=== PATIENT | female | born 1970 | race Caucasian/White ===

== ENCOUNTER → 2023-10-18 08:46 | Outpatient (REF) | payer OTHER, SELFPAY | LOC: HWRAD 08:46 | PROVIDERS: ATTENDING PHYSICIAN Nurse Practitioner Family; FAMILY PHYSICIAN Nurse Practitioner Family | DX: R22.1 Localized swelling, mass and lump, neck (principal) | CPT/HCPCS: 76536 ==

== ENCOUNTER → 2023-11-29 13:11 | Outpatient (REF) | payer OTHER, SELFPAY | LOC: HWWDC 13:11 | PROVIDERS: ATTENDING PHYSICIAN Obstetrics & Gynecology; FAMILY PHYSICIAN Nurse Practitioner Family | DX: Z12.31 Encounter for screening mammogram for malignant neoplasm of breast (principal) | CPT/HCPCS: 77063; 77067 ==

== ENCOUNTER → 2024-02-12 13:44 | Outpatient (REF) | payer OTHER, SELFPAY | LOC: HWRAD 13:44 | PROVIDERS: ATTENDING PHYSICIAN Obstetrics & Gynecology Gynecology; FAMILY PHYSICIAN Nurse Practitioner Family | DX: N95.0 Postmenopausal bleeding (principal) | CPT/HCPCS: 76830; 76856 ==

== ENCOUNTER → 2025-01-07 13:00 | Outpatient (REF) | payer OTHER, SELFPAY | LOC: HWWDC 13:00 | PROVIDERS: ATTENDING PHYSICIAN Obstetrics & Gynecology; FAMILY PHYSICIAN Nurse Practitioner Family | DX: Z12.31 Encounter for screening mammogram for malignant neoplasm of breast (principal) | CPT/HCPCS: 77063; 77067 ==

== ENCOUNTER → 2025-05-07 12:53 | Outpatient (REF) | payer OTHER, SELFPAY | LOC: WDC 12:53 | PROVIDERS: ATTENDING PHYSICIAN Obstetrics & Gynecology; FAMILY PHYSICIAN Nurse Practitioner Family | DX: R92.2 Inconclusive mammogram (principal) | CPT/HCPCS: 76641 ==